=== PATIENT | male | born 1950 | race Caucasian/White ===

== ENCOUNTER 2019-08-17 16:54 | Outpatient (REF) | payer MEDICARE, SELFPAY ==
[2019-08-17 19:17] LABS: Anion Gap 10.8 mmol/L (3-11); BUN 23 mg/dL (7-18); CO2 27.2 mmol/L (21.0-32.0); CREATININE 1.16 mg/dL (0.70-1.30); Calcium 8.6 mg/dL (8.5-10.1); Chloride 102 mmol/L (98-107); Glucose 128 mg/dL (70-100); Potassium 3.9 mmol/L (3.5-5.1); Sodium 140 mmol/L (136-145)
== END 2019-08-17 17:14 ==
LOC: NCHCN 16:54
PROVIDERS: PCP Physician Assistant Medical; Visit Provider Nurse Practitioner Family
DX: I10 Essential (primary) hypertension (principal)
CPT/HCPCS: 80048

== ENCOUNTER 2021-04-23 13:13 | Outpatient (REF) | payer MEDICARE, SELFPAY ==
[2021-04-23 20:27] LABS: ALT 30 U/L (16-63); AST 23 U/L (15-37); Albumin 3.7 g/dL (3.4-5.0); Alkaline Phosphatase 118 U/L (46-116); BUN 17 mg/dL (7-18); Bilirubin, Total 0.6 mg/dL (0.2-1.0); Calcium 8.9 mg/dL (8.5-10.1); Calculated LDL 73 mg/dL (<100); Chloride 103 mmol/L (98-107); Cholesterol 158 mg/dL (<200); Glucose 113 mg/dL (74-106); HDL Cholesterol 45 mg/dL (40-60); Potassium 3.8 mmol/L (3.5-5.1); Sodium 139 mmol/L (136-145); Total Protein 6.9 g/dL (6.4-8.2); Triglyceride 204 mg/dL (<150)
[2021-04-24 17:22] LABS: PSA, Screening 3.3 ng/mL (0.0-6.5)
== END 2021-04-23 13:14 | disposition home or self-care (01) ==
LOC: NCHCN 13:13
PROVIDERS: PCP Physician Assistant Medical; Visit Provider Nurse Practitioner Family
DX: I10 Essential (primary) hypertension (principal); R73.03 Prediabetes; Z12.5 Encounter for screening for malignant neoplasm of prostate
CPT/HCPCS: 80053; 80061; 84153; 83036

== ENCOUNTER 2023-03-23 12:49 | Outpatient (REF) | payer MEDICARE, SELFPAY ==
[2023-03-23 19:56] LABS: ALT 41 U/L (16-63); AST 21 U/L (15-37); Albumin 3.9 g/dL (3.4-5.0); Alkaline Phosphatase 118 U/L (46-116); Anion Gap 7.7 mmol/L (3-11); BUN 25 mg/dL (7-18); Bilirubin, Total 1.1 mg/dL (0.2-1.0); CO2 29.3 mmol/L (21.0-32.0); CREATININE 1.2 mg/dL (0.70-1.30); Calcium 9.1 mg/dL (8.5-10.1); Calculated LDL 76 mg/dL (<100); Chloride 100 mmol/L (98-107); Cholesterol 166 mg/dL (<200); Estimated GFR 63.46 (mL/min/1.73m2); Glucose 125 mg/dL (74-106); HDL Cholesterol 67 mg/dL (40-60); Potassium 3.9 mmol/L (3.5-5.1); Sodium 137 mmol/L (136-145); Total Protein 7.5 g/dL (6.4-8.2); Triglyceride 116 mg/dL (<150)
== END 2023-03-23 12:50 | disposition home or self-care (01) ==
LOC: NCHCN 12:49
PROVIDERS: PCP Physician Assistant Medical; Visit Provider Nurse Practitioner Family
DX: I10 Essential (primary) hypertension (principal)
CPT/HCPCS: 80053; 80061

== ENCOUNTER 2024-01-18 18:53 | Outpatient (REF) | payer OTHER, SELFPAY ==
[2024-01-18 19:32] LABS: Anion Gap 7.4 mmol/L (3-11); BUN 22 mg/dL (7-18); CO2 28.6 mmol/L (21.0-32.0); CREATININE 1.2 mg/dL (0.70-1.30); Calcium 9.3 mg/dL (8.5-10.1); Chloride 101 mmol/L (98-107); Estimated GFR 63.07 (mL/min/1.73m2); Glucose 132 mg/dL (74-106); Potassium 3.8 mmol/L (3.5-5.1); Sodium 137 mmol/L (136-145)
== END 2024-01-18 18:54 | disposition home or self-care (01) ==
LOC: NCHCN 18:53
PROVIDERS: PCP Physician Assistant Medical; Visit Provider Nurse Practitioner Family
DX: L03.116 Cellulitis of left lower limb (principal); R60.0 Localized edema
CPT/HCPCS: 80048; 87077; 87070; 87186; 87205

== ENCOUNTER 2024-03-13 16:13 | Outpatient (REF) | payer OTHER, SELFPAY | END 2024-03-13 16:14 | disposition home or self-care (01) | LOC: NCHCN 16:13 | PROVIDERS: PCP Physician Assistant Medical; Visit Provider Nurse Practitioner Family | DX: L03.116 Cellulitis of left lower limb (principal) | CPT/HCPCS: 87077; 87070; 87186; 87205 ==

== ENCOUNTER 2024-04-11 13:12 | Outpatient (REF) | payer OTHER, SELFPAY ==
[2024-04-11 19:23] LABS: Anion Gap 8.4 mmol/L (3-11); BUN 22 mg/dL (7-18); CO2 28.6 mmol/L (21.0-32.0); CREATININE 1.1 mg/dL (0.70-1.30); Calcium 8.6 mg/dL (8.5-10.1); Chloride 100 mmol/L (98-107); Estimated GFR 70.01 (mL/min/1.73m2); Glucose 124 mg/dL (74-106); Potassium 3.9 mmol/L (3.5-5.1); Sodium 137 mmol/L (136-145)
== END 2024-04-11 13:13 | disposition home or self-care (01) ==
LOC: NCHCN 13:12
PROVIDERS: PCP Physician Assistant Medical; Visit Provider Physician Assistant
DX: R60.0 Localized edema (principal)
CPT/HCPCS: 80048

== ENCOUNTER 2024-06-28 11:45 | Outpatient (REF) | payer OTHER, SELFPAY ==
--- OUTSIDE RECORDS SUMMARY | 2024-06-28 11:48 | XMS_ITS | Referral Summary ---
Author Organization [facility] Address [address] [place] [address] Care Team Providers Care Electronic News Gathering Editor Name Role Phone Juju Hamilton OD Primary Care Provider Allergies Active Allergy Reactions Criticality Noted Date Comments Lisinopril 07/24/2021 Medication made his dizzy Medications Medication Sig Dispensed Refills Start Date End Date Status atenoloL (TENORMIN) 25 mg tablet 07/19/2021 Active hydroCHLOROthiazide (HYDRODIURIL) 25 mg tablet 07/19/2021 Active fluticasone propionate (FLONASE) 50 mcg/actuation nasal spray 07/19/2021 Active TAMSulosin (FLOMAX) 0.4 mg capsule 07/19/2021 Active wvatkauv-wamngmwfs-tly amethasone (MAXITROL) 3.5mg/mL-10,000 unit/mL-0.1 % ophthalmic suspension INSTILL 1 DROP 4 TIMES DAILY INTO EACH EYE FOR 10 DAYS 07/10/2021 Active Active Problems Problem Noted Date Diagnosed Date Severe myopia of both eyes 07/24/2021 Myopic macular degeneration of both eyes 021 Posterior vitreous detachment of both eyes 07/24 Pseudophakia, both eyes 07/24/2021 Social History Tobacco Use Types Packs/Day Years Used Date Smoking Tobacco: Never Assessed Sex and Gender Information Value Date Recorded Sex Assigned at Not on file Gender Identity Male 07/22/2021 15:41 EDT Sexual Orientation Not on file Plan of Treatment Not on file Advance Directives For more information, please contact: [phone] Documents on File Type Date Recorded Patient Lace Weaver Expl anation COLST/MOLST 09/13/2018 14:53 2018-09-07 DNR/COLST Care Teams Electronic News Gathering Editor Relationship Specialty Start Date End Date Juju Hamilton OD [address] [address] PCP - General 07/22/21
--- OUTSIDE RECORDS SUMMARY | 2024-06-28 11:48 | XMS_ITS | Encounter Summary ---
Author Organization [facility] Address [address] [place] [address] Care Team Providers Care Mine Foreman Name Role Phone Juju Hamilton OD Primary Care Provider [phone] Reason for Visit * Reason Comments Eye Problem * Consult, Test and Treat (3 - 10 Business Days) - Receiving Office to Obtain Authorization Specialty Diagnoses / Procedures Referred By Nora mahan Referred To Contact Ophthalmology Diagnoses Retinal hemorrhage, left eye Juju Hamilton, OD [address] [address] Faustino Ashley MD [address] [place] [id number] Referral ID Status Reason Start Date Expiration Date Visits Requested Visits Authorized [id number] Receiving Office to Obtain Authorization 1 1 Encounter Details Date Type Department Care Team (Late st Contact Info) Description 07/24/2021 13:15 EDT Office Visit [facility] Ophthalmology - [id number] [place] [address] Robson Butcher MD [address] [place] [id number] Social History Tobacco Use Types Packs/Day Years Used Date Smoking Tobacco: Never Assessed Sex and Gender Information Value Date Recorded Sex Assigned at Not on file Gender Identity Male 07/22/2021 15:41 EDT Sexual Orientation Not on file documented as of this encounter Progress Notes * Robson Butcher MD - 07/24/2021 2485 EDT Chief Complaint Patient presents with ??? Eye Problem Comments ERV- referral from Dr. Hamilton. Retinal hemorrhage left eye. HPI Location: Pain: 0 - No pain Quality: Blurry Severity: Duration: Timing: Lasts: Context: ERV- referral from Dr. Hamilton. Modifying factors: Retinal hemorrhage left eye. Associated Signs & Symptoms: Over the last year he has noticed that his left eye vision gradually has gotten worse. He went to get a routine eye exam and she found the hemorrhage in his left eye.He has never had very good vision, high myopia prior to cataract surgery. Occasioanl floaters, no flashes and no eye pain today. He did not see anyone for his decrease in vision over the last year due to COVID, he thoguht that he just neede a YAG done in his left eye as it looks like he is looking through a fog as times, he also has a black spot that he notes inferiorly in his left eye. Visual Fluctuations: Floaters Attestation: The above HPI has been reviewed by the Attending Physician Base Eye Exam Visual Acuity (Snellen - Linear) Right Left Dist sc 20/60 +2 20/300 +1 Dist ph sc NI NI Tonometry (Applanation, 13:49) Right Left Pressure 16 16 Pupils Pupils Right PERRL Left PERRL Visual Alves (Counting fingers) Right Left Full Restrictions Partial outer inferior nasal deficiency Unreliable test for left eye Neuro/Psych Oriented x3: Yes Mood/Affect: Normal Dilation Both eyes: Tropicamide 1%, Phenylephrine 2.5% @ 13:49 Slit Lamp and Fundus Exam Slit Lamp Exam Right Left Lids/Lashes Normal Normal Conjunctiva/Sclera White and quiet White and quiet Cornea Clear Clear Anterior Chamber Deep and quiet Deep and quiet Iris Dilated Dilated Lens Posterior chamber intraocular lens, S/p YAG Posterior chamber intraocular lens, trace PCO Vitreous Posterior vitreous detachment Posterior vitreous detachment Fundus Exam Right Left Disc Peripapillary atrophy Peripapillary atrophy, Tilted disc. Superior to nerve has visible choroidal vessels. Macula Lacquer crack, post. staphyloma, myopic atrophic spots, myopic pigment changes. Lacquer crack, post. staphyloma, myopic atrophic spots, myopic pigment changes, Chorioretinal atrophy Periphery Retina is attached with peripheral pigment changes Retina is attached with peripheral pigment changes Please refer to large retinal drawing. IMAGING: OCT, Retina - OU - Both Eyes Right Eye Quality was good. Scan locations included subfoveal. Progression has no prior data. Findings include (Subretinal deposits, myopic). Left Eye Quality was good. Scan locations included subfoveal. Progression has no prior data. Findings include (VMT and myopic). IMPRESSION: 1. Severe myopia of both eyes OCT, RETINA - OU - BOTH EYES 2. Myopic macular degeneration of both eyes 3. Posterior vitreous detachment of both eyes 4. Pseudophakia, both eyes PLAN: Severe axial High myopia both eyes With myopic degeneration both eyes No evidence of choroidal neovascular membrane or visually significant hemorrhage. There is significant sclera visible in the left eye > right eye with choroidal vessels seen prominently. Will monitor closely Posterior vitreous detachment both eyes No holes, tears or breaks seen Retina is attached 360 Retinal detachment precautions Pseudophakia both eyes Trace PCO left eye Well placed lenses Follow up in 2-3 months with OCT or PRN I, Dr. Robson Butcher, have performed my own HPI and reviewed the tech's ROS. I have also reviewed the patient's past medical, family, social and surgical history, as well as the patient's medications, allergies, and problem list. I am scribing for Dr. Robson Butcher MD while he is personally performing the service. SAGAR OCONNELL (Scribe) documented in this encounter Plan of Treatment Not on file documented as of this encounter Procedures Procedure Name Priority Date/Time Associated Diagnosis Comments OCT, RETINA - OU - BOTH EYES Routine 07/24/2021 14:12 EDT Severe myopia of both eyes documented in this encounter Results * OCT, RETINA - OU - BOTH EYES (07/24/2021 14:12 EDT) Narrative [facility] POINT OF CARE - 07/25/2021 8:07 EDT Right Eye Quality was good. Scan locations included subfoveal. Progression has no prior data. Findings include (Myopic contour/atrophy). Left Eye Quality was good. Scan locations included subfoveal. Progression has no prior data. Findings include (Myopic contour/atrophy). Robson Butcher MD OPHTH TOMOGRAPHY [facility] POINT OF CARE documented in this encounter Visit Diagnoses Diagnosis Severe myopia of both eyes- Primary Myopia Myopic macular degeneration of both eyes Posterior vitreous detachment of both eyes Vitreous degeneration Pseudophakia, both eyes Lens replaced by other means documented in this encounter Historical Medications * This list may reflect changes made after this encounter. Medication Sig Dispensed Refills Start Date End Date slvejnmp-eiqqbsrav-spmyep thasone (MAXITROL) 3.5mg/mL-10,000 unit/mL-0.1 % ophthalmic suspension INSTILL 1 DROP 4 TIMES DAILY INTO EACH EYE FOR 10 DAYS 07/10/2021 TAMSulosin (FLOMAX) 0.4 mg capsule 07/19/2021 fluticasone propionate (FLONASE) 50 mcg/actuation nasal spray 07/19/2021 hydroCHLOROthiazide (HYDRODIURIL) 25 mg tablet 07/19/2021 atenoloL (TENORMIN) 25 mg tablet 07/19/2021 added in this encounter Eye Exam Visual Acuity (Snellen - Linear) Right eye Left eye Dist sc 20/60 +2 20/300 +1 Dist ph sc NI NI Tonometry (Applanation, 13:49) Right eye Left eye Pressure 16 16 Pupils Pupils Right eye PERRL Left eye PERRL Visual Alves (Counting fingers) Right eye Left eye Full Restrictions Partial outer in ferior nasal deficiency Unreliable test for left eye Neuro/Psych Oriented x3: Yes Mood/Affect: Normal Dilation Both eyes: Tropicamide 1%, P henylephrine 2.5% @ 13:49 Slit Lamp Exam Right eye Left eye Lids/Lashes Normal Normal Conjunctiva/Sclera White and quiet White and bull et Cornea Clear Clear Anterior Chamber Deep and quiet Deep and quiet Iris Dilated Dilated Lens Posterior chamber in traocular lens, S/p YAG Posterior chamber intraocular lens, trace PCO Vitreous Posterior vitreous detachment Po sterior vitreous detachment Fundus Exam Right eye Left eye Disc Peripapillary atrophy Peripapill elo atrophy, Tilted disc. Superior to nerve has visible choroidal vessels. Macula Lacquer crack, post. staphyloma, myopic atrophic spots, myopic pigment changes. Lacquer crack, post. staphyloma, myopic atrophic spots, myopic pigment changes, Chorioretinal atrophy Periphery Retina is attached w ith peripheral pigment changes Retina is attached with peripheral pigment changes Care Teams Mine Foreman Relationship Specialty Start Date End Date JoyJujuNORBERT [address] [address] PCP - General 07/22/21 documented as of this encounter
--- OUTSIDE RECORDS SUMMARY | 2024-06-28 11:48 | XMS_ITS | Clinical Summary ---
Author Organization [facility] Address [address] [place] [address] Care Team Providers Care Public Address System Mechanic Name Role Phone Juju Hamilton OD Primary Care Provider [phone] Allergies Active Allergy Reactions Criticality Noted Date Comments Lisinopril 07/24/2021 Medication made his dizzy Medications Medication Sig Dispensed Refills Start Date End Date Status atenoloL (TENORMIN) 25 mg tablet 07/19/2021 Active hydroCHLOROthiazide (HYDRODIURIL) 25 mg tablet 07/19/2021 Active fluticasone propionate (FLONASE) 50 mcg/actuation nasal spray 07/19/2021 Active TAMSulosin (FLOMAX) 0.4 mg capsule 07/19/2021 Active yazgpfbq-ufiqntccb-wkd amethasone (MAXITROL) 3.5mg/mL-10,000 unit/mL-0.1 % ophthalmic suspension [...] Orientation Not on file Plan of Treatment Health Maintenance Due Date Last Done Comments Hepatitis C Screen 1950 RSV Immunization ( o r 60+ Years) (1 - 1-dose 60+ series) 2008 Fall Risk Screening 2013 COVID-19 Vaccine (2022- season) 2023 Advance Directive Review 09/13/2023 Advance Directives For more information, please contact: [phone] Documents on File Type Date Recorded Patient Terrazzo Roller Expl anation COLST/MOLST 09/13/2018 14:53 2018-09-07 DNR/COLST Care Teams Public Address System Mechanic Relationship Specialty Start Date End Date Juju Hamilton OD [address] [address] PCP - General 07/22/21
--- OUTSIDE RECORDS SUMMARY | 2024-06-28 11:48 | XMS_ITS | Encounter Summary ---
Author Organization [facility] Address [address] [place] [address] Care Team Providers Care Implementation Project Manager Name Role Phone Unknown, Provider Primary Care Provider [phone] Juju Hamilton OD Primary Care Provider [phone] Encounter Details Date Type Department Care Team (Late st Contact Info) Description 04/24/2021 Lab Requisition [facility] - [address] [address] Outr Resulting Lab, Provider Social History Tobacco Use Types Packs/Day Years Used Date Smoking Tobacco: Never Assessed Sex and Gender Information Value Date Recorded Sex Assigned at Not on file Gender Identity Male 07/22/2021 15:41 EDT Sexual Orientation Not on file documented as of this encounter Plan of Treatment Not on file documented as of this encounter Procedures Procedure Name Priority Date/Time Associated Diagnosis Comments PSA TOTAL, DIAGNOSTIC Routine 04/23/2021 11:50 EDT documented in this encounter Results * PSA TOTAL, DIAGNOSTIC (04/23/2021 11:50 EDT) PSA 3.3 0.0 - 6.5 ng/mL 04/24/2021 17:18 EDT [facility] Blood VENOUS BLOOD / Unknown 04/23/2021 11:50 EDT 04/24/2021 16:11 EDT Narrative [facility] - 04/24/2021 17:18 EDT NOTE: Serum PSA concentration should not be interpreted as absolute evidence for the presence or absence of malignant disease. Assayed on Siemens [employer] XPT using chemiluminescent technology.??Values obtained by using different assay methods cannot be used interchangeably. Provider Outr Resulting Lab CHEMISTRY & BLOOD GAS ORDERABLES [facility] [address] [place] [address] documented in this encounter Visit Diagnoses Not on filedocumented in this encounter Care Teams Implementation Project Manager Relationship Specialty Start Date End Date Unknown, Provider, PCP - General 09/13/18 07/21/21 Juju Hamilton OD [address] [address] PCP - General 07/22/21 documented as of this encounter
[2024-06-29 18:55] LABS: PSA, Screening 6.5 ng/mL (<=6.5)
== END 2024-06-28 11:46 | disposition home or self-care (01) ==
LOC: NCHCN 11:45
PROVIDERS: PCP Physician Assistant Medical; Visit Provider Nurse Practitioner Family
DX: N40.1 Benign prostatic hyperplasia with lower urinary tract symptoms (principal); Z12.5 Encounter for screening for malignant neoplasm of prostate
CPT/HCPCS: 84153

== ENCOUNTER 2025-05-21 18:59 | Outpatient (REF) | payer MEDICARE, SELFPAY ==
[2025-05-21 19:37] LABS: ALT 35 U/L (16-63); AST 22 U/L (15-37); Albumin 3.6 g/dL (3.4-5.0); Alkaline Phosphatase 138 U/L (46-116); Anion Gap 7.5 mmol/L (3-11); BUN 18 mg/dL (7-18); Bilirubin, Total 0.7 mg/dL (0.2-1.0); CO2 29.5 mmol/L (21.0-32.0); Calcium 9.6 mg/dL (8.5-10.1); Chloride 100 mmol/L (98-107); Estimated GFR 88.51 (mL/min/1.73m2); Glucose 112 mg/dL (74-106); Potassium 3.9 mmol/L (3.5-5.1); Sodium 137 mmol/L (136-145); Total Protein 7.5 g/dL (6.4-8.2)
== END 2025-05-21 19:00 | disposition home or self-care (01) ==
LOC: NCHCN 18:59
PROVIDERS: PCP Physician Assistant Medical; Visit Provider Nurse Practitioner Family
DX: I10 Essential (primary) hypertension (principal)
CPT/HCPCS: 80053